=== PATIENT | male | born 1990 | race Caucasian/White ===

== ENCOUNTER 2018-08-16 03:20 | Emergency (ER) | payer BC ==
[2018-08-16] MEDS: Sodium Chloride 0.9% 1,000 ML IV ONE (03:55)
[2018-08-16] MEDS: Ondansetron 4 MG/2 ML SDV IVPUSH ONE (04:00)
--- NOTE | 2018-08-16 04:00 | EDM.PDOC ---
ED HPI GENERAL MEDICAL PROBLEM - General Chief Complaint: Abdominal Pain Stated Complaint: APPENDICITIS Time Seen by Provider: 08/16/18 03:58 - History of Present Illness INITIAL COMMENTS - FREE TEXT/NARRATIVE: HISTORY AND PHYSICAL: History of present illness: Patient's 28-year-old white male presents concern of right-sided abdominal pain that started approximately 7:00 tonight he denies trauma he's had associated nausea no vomiting no diarrhea denies fever chills or prior rotator cuff surgery but denies other. Review of systems: As per history of present illness and below otherwise all systems reviewed and negative. Past medical history: As per history of present illness and as reviewed below otherwise noncontributory. Surgical history: As per history of present illness and as reviewed below otherwise noncontributory. Social history: No reported history of drug or alcohol abuse. Family history: As per history of present illness and as reviewed below otherwise noncontributory. Physical exam: HEENT: Atraumatic, normocephalic, pupils reactive, negative for conjunctival pallor or scleral icterus, mucous membranes moist, throat clear, neck supple, nontender, trachea midline. Lungs: Clear to auscultation, breath sounds equal bilaterally, chest nontender. Heart: S1S2, regular, negative for clicks, rubs, or JVD. Abdomen: Soft, nondistended, nonlocalized right-sided tenderness no rebound no guarding. Negative for masses or hepatosplenomegaly. Negative for costovertebral tenderness. Pelvis: Stable nontender. Genitourinary: Deferred. Rectal: Deferred. Extremities: Atraumatic, negative for cords or calf pain. Neurovascular unremarkable. Neuro: Awake, alert, oriented. Cranial nerves II through XII unremarkable. Cerebellum unremarkable. Motor and sensory unremarkable throughout. Exam nonfocal. Diagnostics: CBC CMP troponin UA CT abdomen and pelvis lipase Therapeutics: Saline 1 L bolus Toradol 30 mg IV Zofran 4 mg IV Impression: #1 right-sided abdominal pain Definitive disposition and diagnosis as appropriate pending reevaluation and review of above. Right Lower Abdominal Pain Score (Numeric/FACES): 6 - Related Data Allergies Allergy/AdvReac Type Severity Reaction Status Date / Time meperidine [From Demerol] Allergy Hives Verified 08/16/18 03:27 Home Meds: Home Meds . [No Known Home Meds] 08/16/18 [History] Past Medical History HEENT History: Reports: None Cardiovascular History: Reports: None Respiratory History: Reports: Asthma Gastrointestinal History: Reports: None Genitourinary History: Reports: None Musculoskeletal History: Reports: None Neurological History: Reports: None Psychiatric History: Reports: None Endocrine/Metabolic History: Reports: None Hematologic History: Reports: None Immunologic History: Reports: None Oncologic (Cancer) History: Reports: None Dermatologic History: Reports: None - Infectious Disease History Infectious Disease History: Reports: Chicken Pox - Past Surgical History Head Surgeries/Procedures: Reports: None Social & Family History - Family History Family Medical History: Noncontributory - Tobacco Use Smoking Status *Q: Never Smoker Second Hand Smoke Exposure: No - Caffeine Use Caffeine Use: Reports: Coffee - Recreational Drug Use Recreational Drug Use: No ED ROS GENERAL - Review of Systems Review Of Systems: ROS reveals no pertinent complaints other than HPI. ED EXAM, GENERAL - Physical Exam Exam: See Below (See dictation) Course - Vital Signs Text/Narrative:: Patient's emergency department course has been unremarkable his workup has been nondiagnostic discuss with patient disposition and offered admission for observation patient declined to be discharged home [facility] medical doctor clear liquids 24 hours return as needed as discussed Last Recorded V/S: Last Vital Signs Temp 36.1 C 08/16/18 03:28 Pulse 86 08/16/18 03:28 Resp 20 08/16/18 03:28 BP 117/71 08/16/18 03:28 Pulse Ox 100 08/16/18 03:28 - Orders/Labs/Meds Labs: Laboratory Tests 08/16/18 08/16/18 08/16/18 Range/Units 03:30 03:33 03:33 WBC 9.10 (4.0-11.0) K/uL RBC 5.70 (4.50-5.90) M/uL Hgb 16.3 (13.0-17.0) g/dL Hct 47.0 (38.0-50.0) % MCV 82.5 (80.0-98.0) fL MCH 28.6 (27.0-32.0) pg MCHC 34.7 (31.0-37.0) g/dL RDW Std Deviation 40.2 (28.0-62.0) fl RDW Coeff of Clarisa 14 (11.0-15.0) % Plt Count 260 (150-400) K/uL MPV 10.10 (7.40-12.00) fL Neut % (Auto) 54.8 (48.0-80.0) % Lymph % (Auto) 32.5 (16.0-40.0) % Dunn % (Auto) 9.8 (0.0-15.0) % Eos % (Auto) 2.7 (0.0-7.0) % Baso % (Auto) 0.2 (0.0-1.5) % Neut # (Auto) 5.0 (1.4-5.7) K/uL Lymph # (Auto) 3.0 H (0.6-2.4) K/uL Dunn # (Auto) 0.9 H (0.0-0.8) K/uL Eos # (Auto) 0.3 (0.0-0.7) K/uL Baso # (Auto) 0.0 (0.0-0.1) K/uL Nucleated RBC % 0.0 /100WBC Nucleated RBCs # 0 K/uL Sodium 137 (136-148) mmol/L Potassium 3.6 (3.5-5.1) mmol/L Chloride 102 (98-107) mmol/L Carbon Dioxide 26.7 (21.0-32.0) mmol/L BUN 14 (7.0-18.0) mg/dL Creatinine 1.0 (0.8-1.3) mg/dL Est Cr Clr Drug Dosing 118.18 mL/min Estimated GFR (MDRD) > 60.0 ml/min Glucose 87 (74-106) mg/dL Calcium 9.0 (8.5-10.1) mg/dL Total Bilirubin 0.4 (0.2-1.0) mg/dL AST 22 (15-37) IU/L ALT 42 (14-63) IU/L Alkaline Phosphatase 104 (46-116) U/L Total Protein 7.9 (6.4-8.2) g/dL Albumin 3.8 (3.4-5.0) g/dL Globulin 4.1 H (2.6-4.0) g/dL Albumin/Globulin Ratio 0.9 (0.9-1.6) Lipase (73-393) U/L Urine Color YELLOW Urine Appearance CLEAR Urine pH 6.0 (5.0-8.0) Ur Specific Burden 1.015 (1.001-1.035) Urine Protein NEGATIVE (NEGATIVE) mg/dL Urine Glucose (UA) NEGATIVE (NEGATIVE) mg/dL Urine Ketones NEGATIVE (NEGATIVE) mg/dL Urine Occult Blood TRACE-INTACT H (NEGATIVE) Urine Nitrite NEGATIVE (NEGATIVE) Urine Bilirubin NEGATIVE (NEGATIVE) Urine Urobilinogen 0.2 (<2.0) EU/dL Ur Leukocyte Esterase NEGATIVE (NEGATIVE) Urine RBC 0-2 (0-2/HPF) Urine WBC 0-1 (0-5/HPF) Ur Epithelial Cells RARE (NONE-FEW) Urine Bacteria RARE (NEGATIVE) 08/16/18 Range/Units 03:33 WBC (4.0-11.0) K/uL RBC (4.50-5.90) M/uL Hgb (13.0-17.0) g/dL Hct (38.0-50.0) % MCV (80.0-98.0) fL MCH (27.0-32.0) pg MCHC (31.0-37.0) g/dL RDW Std Deviation (28.0-62.0) fl RDW Coeff of Clarisa (11.0-15.0) % Plt Count (150-400) K/uL MPV (7.40-12.00) fL Neut % (Auto) (48.0-80.0) % Lymph % (Auto) (16.0-40.0) % Dunn % (Auto) (0.0-15.0) % Eos % (Auto) (0.0-7.0) % Baso % (Auto) (0.0-1.5) % Neut # (Auto) (1.4-5.7) K/uL Lymph # (Auto) (0.6-2.4) K/uL Dunn # (Auto) (0.0-0.8) K/uL Eos # (Auto) (0.0-0.7) K/uL Baso # (Auto) (0.0-0.1) K/uL Nucleated RBC % /100WBC Nucleated RBCs # K/uL Sodium (136-148) mmol/L Potassium (3.5-5.1) mmol/L Chloride (98-107) mmol/L Carbon Dioxide (21.0-32.0) mmol/L BUN (7.0-18.0) mg/dL Creatinine (0.8-1.3) mg/dL Est Cr Clr Drug Dosing mL/min Estimated GFR (MDRD) ml/min Glucose (74-106) mg/dL Calcium (8.5-10.1) mg/dL Total Bilirubin (0.2-1.0) mg/dL AST (15-37) IU/L ALT (14-63) IU/L Alkaline Phosphatase (46-116) U/L Total Protein (6.4-8.2) g/dL Albumin (3.4-5.0) g/dL Globulin (2.6-4.0) g/dL Albumin/Globulin Ratio (0.9-1.6) Lipase 192 (73-393) U/L Urine Color Urine Appearance Urine pH (5.0-8.0) Ur Specific Burden (1.001-1.035) Urine Protein (NEGATIVE) mg/dL Urine Glucose (UA) (NEGATIVE) mg/dL Urine Ketones (NEGATIVE) mg/dL Urine Occult Blood (NEGATIVE) Urine Nitrite (NEGATIVE) Urine Bilirubin (NEGATIVE) Urine Urobilinogen (<2.0) EU/dL Ur Leukocyte Esterase (NEGATIVE) Urine RBC (0-2/HPF) Urine WBC (0-5/HPF) Ur Epithelial Cells (NONE-FEW) Urine Bacteria (NEGATIVE) Meds: Medications Discontinued Medications Generic Name Dose Route Start Last Admin Trade Name Freq PRN Reason Stop Dose Admin Sodium Chloride 1,000 mls @ 999 mls/hr 08/16/18 03:48 08/16/18 03:55 Normal Saline IV 08/16/18 04:48 999 mls/hr .Bolus ONE Administration Ketorolac Tromethamine 30 mg 08/16/18 03:49 08/16/18 04:01 Toradol IVPUSH 08/16/18 03:50 30 mg ONETIME ONE Administration Ondansetron HCl 4 mg 08/16/18 03:49 08/16/18 04:00 Zofran IVPUSH 08/16/18 03:50 4 mg ONETIME ONE Administration Departure - Departure Time of Disposition: 05:58 Disposition: Home, Self-Care 01 Condition: Good Clinical Impression: Abdominal pain - Discharge Information Referrals: PCP,None [Primary Care Provider] - Forms: ED Department Discharge Additional Instructions: The following information is given to patients seen in the emergency department who are being discharged to home. This information is to outline your options for follow-up care. We provide all patients seen in our emergency department with a follow-up referral. The need for follow-up, as well as the timing and circumstances, are variable depending upon the specifics of your emergency department visit. If you don't have a primary care physician on staff, we will provide you with a referral. We always advise you to contact your personal physician following an emergency department visit to inform them of the circumstance of the visit and for follow-up with them and/or the need for any referrals to a consulting specialist. The emergency department will also refer you to a specialist when appropriate. This referral assures that you have the opportunity for followup care with a specialist. All of these measure are taken in an effort to provide you with optimal care, which includes your followup. Under all circumstances we always encourage you to contact your private physician who remains a resource for coordinating your care. When calling for followup care, please make the office aware that this follow-up is from your recent emergency room visit. If for any reason you are refused follow-up, please contact the [facility] emergency department at and asked to speak to the emergency department charge nurse. Clear liquids 24 hours avoid dairy 72 hours follow-up primary medical doctor as discussed and return as needed as discussed
[2018-08-16] MEDS: Ketorolac 30 MG/ML SDV IVPUSH ONE (04:01)
[2018-08-16 04:03] LABS: CHLORIDE,CL 102 mmol/L (98-107); SODIUM,NA 137 mmol/L (136-148)
--- NOTE | 2018-08-16 05:09 | CT ---
INDICATION: Right lower quadrant pain TECHNIQUE: CT abdomen and pelvis without contrast. COMPARISON: None. FINDINGS: Lower chest: Minimal bibasilar ground-glass opacities, likely subsegmental atelectasis. Liver: Decreased density liver consistent with fatty infiltration with focal sparing adjacent to the gallbladder fossa. Gallbladder and bile ducts: No stones or inflammation. No biliary dilatation. Pancreas: Unremarkable. No mass or inflammation. Spleen: Normal in size. No masses. Adrenal glands: Normal in size. No nodules. Kidneys: Kidneys are normal in contour with a 1 millimeter nonobstructing stone within the right kidney although without evidence of ureteral stone or hydronephrosis. GI tract: The stomach is unremarkable. There are no dilated loops of large or small intestine with a moderate amount of stool within the colon. Terminal ileum is seen and is unremarkable. Appendix upper normal caliber without periappendiceal inflammation. Subcentimeter lymph nodes within the upper mesentery. No pathologically enlarged lymph nodes. Vasculature: Unremarkable. Pelvis: Unremarkable. No pelvic masses. Bones: Unremarkable for age. IMPRESSION: 1. Nonobstructing nephrolithiasis without evidence of ureteral stone or hydronephrosis. 2. Fatty infiltration of the liver. 3. No dilated bowel or focal inflammation. Please note that all CT scans at this facility use dose modulation, iterative reconstruction, and/or weight-based dosing when appropriate to reduce radiation dose to as low as reasonably achievable. Dictated by Napoleon Decker MD @ Aug 16 2018 5:03AM Signed by Dr. Napoleon Decker @ Aug 16 2018 5:09AM
== END 2018-08-16 06:20 | disposition home or self-care (01) ==
LOC: MW.ED 03:20
DX: R10.9 Unspecified abdominal pain (principal); Z88.5 Allergy status to narcotic agent
CPT/HCPCS: 36415; 74176; 80053; 81001; 83690; 85025; 96361; 96374; 96375; 99284; J1885; J2405; J7040

== ENCOUNTER 2024-07-29 09:04 | Emergency (ER) | payer BC ==
[2024-07-29] MEDS: Sodium Chloride 0.9% 1,000 ML IV ONE ×2 (09:42→12:25)
[2024-07-29] MEDS: Sodium Chloride 0.9% 1,000 ML IV SCH (09:43)
[2024-07-29] MEDS: Ketorolac 30 MG/ML SDV IVPUSH ONE (09:43)
[2024-07-29] MEDS: Ondansetron 4 MG/2 ML SDV IVPUSH ONE (09:43)
[2024-07-29] MEDS: Sodium Chloride 0.9% 10 ML Syringe FLUSH PRN (09:44)
[2024-07-29 09:47] LABS: BASOPHILS ABSOLUTE AUTO 0.01 K/uL (0.00-0.20); BASOPHILS PERCENT AUTO 0.1 % (0.0-1.0); EOSINOPHILS ABSOLUTE AUTO 0.03 K/uL (0.00-0.45); EOSINOPHILS PERCENT AUTO 0.3 % (0.0-6.0); HEMATOCRIT 47.1 % (42.0-52.0); HEMOGLOBIN 16.5 g/dL (14.0-18.0); IMMATURE GRAN ABSOLUTE AUTO 0.02 K/uL (0.00-0.05); IMMATURE GRAN PERCENT AUTO 0.2 % (0.0-0.4); LYMPHOCYTES PERCENT AUTO 7.6 % (24.0-44.0); MEAN CORPUSCULAR HEMOGLOBIN 28.5 pg (28.0-32.0); MEAN CORPUSCULAR VOLUME 81.3 fL (83.0-99.0); MEAN PLATELET VOLUME 9.3 fL (9.4-12.4); MONOCYTES ABSOLUTE AUTO 0.45 K/uL (0.00-0.80); MONOCYTES PERCENT AUTO 4.9 % (0.0-8.0); NEUTROPHILS PERCENT AUTO 86.9 % (41.0-71.0); PLATELET COUNT,PLT 257 K/uL (150-400); RED BLOOD CELL COUNT 5.79 M/uL (4.52-5.90); WHITE BLOOD CELL COUNT,WBC 9.21 K/uL (3.9-11.3)
[2024-07-29 10:14] LABS: A/G RATIO 0.8 (0.9-1.6); ALBUMIN 3.6 g/dL (3.4-5.0); BILIRUBIN TOTAL 0.5 mg/dL (0.2-1.0); CALCIUM 9.2 mg/dL (8.5-10.1); CARBON DIOXIDE,CO2 26.3 mmol/L (21.0-32.0); CREATININE 1.1 mg/dL (0.8-1.3); EST CRCL DRUG DOSING (CG) 101.73 mL/min; MAGNESIUM 1.6 mg/dL (1.8-2.4); POTASSIUM,K 3.9 mmol/L (3.5-5.1)
[2024-07-29] MEDS: Lactated Ringers 1,000 ML IV ONE (13:28)
== END 2024-07-29 14:51 | disposition home or self-care (01) ==
LOC: MW.ED 09:04
DX: K52.9 Noninfective gastroenteritis and colitis, unspecified (principal); J45.909 Unspecified asthma, uncomplicated; Z88.8 Allergy status to other drugs, medicaments and biological substances; Z79.899 Other long term (current) drug therapy
CPT/HCPCS: 36415; 80053; 83735; 85025; 96361; 96374; 96375; 99284-25; J1885; J2405; J7030; J7120

== ENCOUNTER 2024-07-30 02:02 | Emergency (ER) | payer BC ==
[2024-07-30] MEDS: Sodium Chloride 0.9% 1,000 ML IV ONE (02:23)
[2024-07-30] MEDS: Ondansetron 4 MG/2 ML SDV IVPUSH ONE (02:24)
[2024-07-30 02:40] LABS: BASOPHILS ABSOLUTE AUTO 0.01 K/uL (0.00-0.20); BASOPHILS PERCENT AUTO 0.1 % (0.0-1.0); HEMATOCRIT 38.6 % (42.0-52.0); HEMOGLOBIN 13.4 g/dL (14.0-18.0); IMMATURE GRAN ABSOLUTE AUTO 0.02 K/uL (0.00-0.05); IMMATURE GRAN PERCENT AUTO 0.2 % (0.0-0.4); LYMPHOCYTES ABSOLUTE AUTO 1.14 K/uL (1.00-4.80); LYMPHOCYTES PERCENT AUTO 14.2 % (24.0-44.0); MEAN CORPUSCULAR HEMOGLOBIN 28.3 pg (28.0-32.0); MEAN CORPUSCULAR HGB CONC 34.7 g/dL (32.0-36.0); MEAN CORPUSCULAR VOLUME 81.6 fL (83.0-99.0); MEAN PLATELET VOLUME 9.1 fL (9.4-12.4); MONOCYTES ABSOLUTE AUTO 0.65 K/uL (0.00-0.80); MONOCYTES PERCENT AUTO 8.1 % (0.0-8.0); NEUTROPHILS ABSOLUTE AUTO 6.21 K/uL (1.80-7.70); NEUTROPHILS PERCENT AUTO 77.4 % (41.0-71.0); PLATELET COUNT,PLT 183 K/uL (150-400); RED BLOOD CELL COUNT 4.73 M/uL (4.52-5.90); WHITE BLOOD CELL COUNT,WBC 8.03 K/uL (3.9-11.3)
[2024-07-30] MEDS: Dicyclomine 10 MG Cap PO ONE (02:51)
[2024-07-30 03:04] LABS: A/G RATIO 0.8 (0.9-1.6); ALBUMIN 2.7 g/dL (3.4-5.0); BILIRUBIN DIRECT 0.2 mg/dL (0.0-0.5); BILIRUBIN INDIRECT 0.3; BILIRUBIN TOTAL 0.5 mg/dL (0.2-1.0); CALCIUM 7.6 mg/dL (8.5-10.1); CARBON DIOXIDE,CO2 23.5 mmol/L (21.0-32.0); EST CRCL DRUG DOSING (CG) 111.9 mL/min; POTASSIUM,K 3.2 mmol/L (3.5-5.1); PROTEIN TOTAL,TP 6.1 g/dL (6.4-8.2)
[2024-07-30 03:22] LABS: APPEARANCE,URINE CLEAR; BILIRUBIN,URINE NEGATIVE (NEGATIVE); COLOR,URINE YELLOW; GLUCOSE,URINE NEGATIVE (NEGATIVE); KETONES,URINE TRACE mg/dL (NEGATIVE); LEUKOCYTE ESTERASE,URINE NEGATIVE (NEGATIVE); NITRITE,URINE NEGATIVE (NEGATIVE); OCCULT BLOOD,URINE NEGATIVE (NEGATIVE); PROTEIN,URINE NEGATIVE (NEGATIVE); UROBILINOGEN,URINE 0.2 EU/dL (<2.0)
[2024-07-30] MEDS: Potassium Chloride 20 MEQ Tab.ER PO ONE (03:29)
[2024-07-30 03:32] LABS: AMPHETAMINES SCREEN, URINE NEGATIVE (CUTOFF=500); BARBITURATE SCREEN,URINE NEGATIVE (CUTOFF=200); BENZODIAZEPINES SCREEN,URINE NEGATIVE (CUTOFF=150); BUPRENORPHINE SCREEN,URINE NEGATIVE (CUTOFF=10); METHADONE SCREEN, URINE NEGATIVE (CUTOFF=200); METHAMPHETAMINES SCREEN, URINE NEGATIVE (CUTOFF=500); OXYCODONE SCREEN,URINE NEGATIVE (CUT0FF=100); PCP SCREEN,URINE NEGATIVE (CUTOFF=25); THC SCREEN,URINE 20 NG/ML NEGATIVE (CUTOFF=50)
[2024-07-30] MEDS: Iopamidol 755 MG/ML 500 ML Multipack Bottle IVPUSH STA (07:39)
[2024-07-30] MEDS ORDERED: HYDROmorphone 0.5 MG/0.5 ML Syringe IVPUSH ONE (08:56)
[2024-07-30] MEDS ORDERED: Naloxone 0.4 MG/ML SDV IVPUSH PRN (08:56)
== END 2024-07-30 09:44 | disposition home or self-care (01) ==
LOC: MW.ED 02:02
DX: K52.9 Noninfective gastroenteritis and colitis, unspecified (principal); Z88.8 Allergy status to other drugs, medicaments and biological substances; Z79.899 Other long term (current) drug therapy; Z75.8 Other problems related to medical facilities and other health care
CPT/HCPCS: 36415; 71046; 74177; 80048; 80076; 80305; 81003; 83690; 84484; 85025; 93005; 96374; 99285; A9270; J2405; J7030; Q9967; 93010; 99284

== ENCOUNTER 2025-03-14 18:50 | Emergency (ER) | payer BC ==
[2025-03-14 19:06] LABS: BASOPHILS ABSOLUTE AUTO 0.03 K/uL (0.00-0.20); BASOPHILS PERCENT AUTO 0.4 % (0.0-1.0); EOSINOPHILS ABSOLUTE AUTO 0.25 K/uL (0.00-0.45); EOSINOPHILS PERCENT AUTO 3.2 % (0.0-6.0); IMMATURE GRAN ABSOLUTE AUTO 0.01 K/uL (0.00-0.05); IMMATURE GRAN PERCENT AUTO 0.1 % (0.0-0.4); LYMPHOCYTES ABSOLUTE AUTO 2.42 K/uL (1.00-4.80); LYMPHOCYTES PERCENT AUTO 31.4 % (24.0-44.0); MEAN PLATELET VOLUME 9.1 fL (9.4-12.4); MONOCYTES ABSOLUTE AUTO 0.50 K/uL (0.00-0.80); MONOCYTES PERCENT AUTO 6.5 % (0.0-8.0); NEUTROPHILS ABSOLUTE AUTO 4.50 K/uL (1.80-7.70); NEUTROPHILS PERCENT AUTO 58.4 % (41.0-71.0); NRBC ABSOLUTE 0.00 K/uL (0.00-0.02); NRBC PERCENT 0.0 /100WBC (0.0-0.2); PLATELET COUNT,PLT 236 K/uL (150-400); RED BLOOD CELL COUNT 5.22 M/uL (4.52-5.90); WHITE BLOOD CELL COUNT,WBC 7.71 K/uL (3.9-11.3)
[2025-03-14 19:35] LABS: A/G RATIO 0.9 (0.9-1.6); ALANINE AMINOTRANSFERASE,ALT 39 IU/L (14-63); ASPARTATE AMNIOTRANSFERASE,AST 21 IU/L (15-37); BILIRUBIN TOTAL 0.2 mg/dL (0.2-1.0); BLOOD UREA NITROGEN,BUN 12 mg/dL (7.0-18.0); CARBON DIOXIDE,CO2 29.6 mmol/L (21.0-32.0); CHLORIDE,CL 103 mmol/L (98-107); CREATININE 1.2 mg/dL (0.8-1.3); ESTIMATED GFR 81 mL/min (>60); GLUCOSE RANDOM 114 mg/dL (74-106); POTASSIUM,K 4.0 mmol/L (3.5-5.1); PROTEIN TOTAL,TP 7.8 g/dL (6.4-8.2); SODIUM,NA 141 mmol/L (136-148)
== END 2025-03-14 20:11 | disposition home or self-care (01) ==
LOC: MW.ED 18:50
DX: K64.9 Unspecified hemorrhoids (principal); Z79.899 Other long term (current) drug therapy
CPT/HCPCS: 36415; 80053; 85025; 99283